=== PATIENT | female | born 1980 | race Two or more races ===

== ENCOUNTER 2023-09-19 18:00 | Emergency (ER) | payer BC ==
[~2023-09-19] VITALS: Ht 175.3 cm; Wt 73.9 kg
[2023-09-19] MEDS ORDERED: ZOLOFT100 MG (18:26)
[2023-09-19] MEDS ORDERED: ADERRAL (18:26)
[2023-09-19 19:57] LABS: HEMATOCRIT 38.7 % (36.0-45.00); HEMOGLOBIN 13.4 g/dL (12.0-15.00); MEAN CORPUSCULAR HEMOGLOBIN 32.9 pg (27.00-32.0); MEAN CORPUSCULAR HGB CONC 34.6 g/dl (32.0-36.0); PLATELET COUNT 187 K/uL (150-450); RED BLOOD COUNT 4.07 M/uL (4.00-6.00); RED CELL DISTRIBUTION WIDTH 12.3 % (11.5-14.5)
[2023-09-19 20:16] LABS: CALCIUM 8.6 mg/dL (8.5-10.1); CREATININE SERUM 0.65 mg/dL (0.55-1.02); GFR 98.57; POTASSIUM 4.1 mEq/L (3.5-5.1)
[2023-09-19] MEDS ORDERED: ZOFRAN8 MG PO (20:55)
[2023-09-19] MEDS ORDERED: INTESTINEX680 M1 PO (20:55)
[2023-09-19] MEDS ORDERED: PEPCID AC20 MG PO (20:55)
[2023-09-19 21:32] LABS: PH,URINE 7.5 (5.0-8.0); URINE APPEARANCE Cloudy; URINE BILIRRUBIN Negative (NEGATIVE); URINE BLOOD Negative; URINE COLOR Yellow; URINE GLUCOSE Negative (NEGATIVE); URINE LEUKOCYTE Trace; URINE NITRATE Negative; URINE PROTEIN Negative (NEGATIVE)
[2023-09-19 21:36] LABS: URINE EPITHELIAL CELLS 190.4 uL (0.0-38.8); URINE RBC 13.9 uL (0.0-20.8); URINE WBC 31.6 uL (0.0-23.2)
[2023-09-19 21:56] LABS: URINE BACTERIA > 9821.5 uL (0.0-1933)
== END 2023-09-19 21:25 | disposition home or self-care (01) ==
LOC: ER 18:01
PROVIDERS: General Practice
DX: R10.13 Epigastric pain (principal); F32.9 Major depressive disorder, single episode, unspecified